=== PATIENT | male | born 1980 | race Caucasian/White ===

== ENCOUNTER → 2016-05-15 | Outpatient (CLI) | payer OTHER ==
[2016-05-17 11:08] LABS: QUANTIF TB AG-NIL 0.01 IU/ML; QUANTIFERON NIL 0.02 IU/ML
== END | disposition home or self-care (01) ==
LOC: C.LABSPEC 12:24
PROVIDERS: ATTEND Dermatology
DX: L40.0 Psoriasis vulgaris (principal)

== ENCOUNTER → 2017-03-16 | Outpatient (CLI) | payer OTHER ==
--- NOTE | 2017-03-16 13:28 | DIAGNOSTIC IMAGING REPORT ---
R KNEE 4 OR MORE HISTORY: 36 years-old Male RIGHT KNEE AND LEFT ANKLE PAIN acute right knee pain without reported trauma COMPARISON: None available TECHNIQUE: 4 views of the right knee FINDINGS: No acute fracture, dislocation or significant degenerative changes. Small joint effusion. No intra-articular loose body. No osteochondral defect. IMPRESSION: Small joint effusion without acute fracture. The above report was generated using voice recognition software. It may contain grammatical, syntax or spelling errors. Electronically signed by: Yoni Selby M.D. 03/16/2017 1:26 PM Dictated Date/Time: 03/16/2017 1:25 PM
--- NOTE | 2017-03-16 13:32 | DIAGNOSTIC IMAGING REPORT ---
L ANKLE MIN 3 VIEWS HISTORY: 36 years-old Male RIGHT KNEE AND LEFT ANKLE PAIN acute left ankle pain COMPARISON: None available TECHNIQUE: 3 views of the left ankle FINDINGS: Chronic tearing fragmentation of the medial malleolus suggests remote fracture deformity. 3 mm corticated ossification inferior to the distal fibula is also noted. No acute fracture, dislocation or osteochondral defect identified. No definite intra-articular loose body. Mild circumferential soft tissue swelling without opaque foreign body. IMPRESSION: 1. Mild soft tissue swelling without acute fracture or dislocation. 2. Remote appearing fracture deformity of the medial malleolus. 3 mm corticated bone fragment inferior to the fibula also noted suggesting accessory ossicle or remote avulsion fracture. The above report was generated using voice recognition software. It may contain grammatical, syntax or spelling errors. Electronically signed by: Yoni Selby M.D. 03/16/2017 1:30 PM Dictated Date/Time: 03/16/2017 1:29 PM
== END | disposition home or self-care (01) ==
LOC: C.RDSM 13:05
PROVIDERS: ATTEND Family Medicine
DX: M25.572 Pain in left ankle and joints of left foot (principal); M25.561 Pain in right knee; M21.962 Unspecified acquired deformity of left lower leg; M25.461 Effusion, right knee

== ENCOUNTER → 2017-03-27 | Outpatient (CLI) | payer OTHER ==
--- NOTE | 2017-03-27 13:24 | DIAGNOSTIC IMAGING REPORT ---
ORBITS FOR MRI CLINICAL HISTORY: 36 years-old Male presenting with PRE MRI. TECHNIQUE: 3 views of the orbits were obtained. COMPARISON: None. FINDINGS: No radiopaque intraorbital foreign body. Bony orbits grossly intact. Paranasal sinuses grossly clear. Visualized portion of the calvarium intact. IMPRESSION: No intraorbital metallic foreign body to preclude MRI exam. Electronically signed by: Mitchell Evans M.D. 03/27/2017 1:23 PM Dictated Date/Time: 03/27/2017 1:22 PM
--- NOTE | 2017-03-27 15:01 | DIAGNOSTIC IMAGING REPORT ---
L LOWER EXT JOINT WITHOUT CLINICAL HISTORY: 36 years-old Male presenting with LEFT ANKLE PAIN, history of remote injury 12 years ago, concern for osteochondral defect for arthritis. TECHNIQUE: Multisequence, multiplanar MR imaging of the left ankle was performed without the use of intravenous contrast. IV contrast: None. COMPARISON: Plain radiographs from 03/16/2017. FINDINGS: Localizer images: Unremarkable. No bony edema. Articular cartilage preserved. No evidence of an osteochondral lesion. Ankle mortise preserved. Fat signal intensity within the sinus Tarsi is preserved. Tarsal tunnel preserved. Evidence of an old avulsion fracture of the medial malleolus immediately anterior to the deltoid ligament fibers. Cystic change noted within the fracture fragment. There is suggestion of a fibrous coalition of the anterior process of the calcaneus and navicular noted. Achilles tendon intact. Minimal superficial edema noted at the medial band of the plantar fascia. The fascia itself maintains normal signal intensity and is intact. Anterior and posterior inferior tibiofibular ligaments intact. Posterior talofibular ligament intact. Anterior talofibular ligament with abnormal fluid signal intensity at the talar aspect and a focal ossicle within the ligament suggestive old tear. Calcaneofibular ligament intact. Deltoid ligament intact. Anterior, posterior, and peroneal ligaments intact. IMPRESSION: 1. Evidence of an old avulsion fracture of the medial malleolus. This is not appear to disrupt the deltoid ligament. Associated cystic change within the fracture fragment evidence of degenerative change. 2. Suggestion of mild superficial plantar fasciitis of the medial band. 3. Suggestion of a calcaneonavicular fibrous coalition. 4. 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 Electronically signed by: Mitchell Evans M.D. 03/27/2017 3:00 PM Dictated Date/Time: 03/27/2017 2:45 PM
--- NOTE | 2017-03-27 15:05 | DIAGNOSTIC IMAGING REPORT ---
R LOWER EXT JOINT WITHOUT CLINICAL HISTORY: RIGHT KNEE PAIN pain TECHNIQUE: Multiaxial MRI acquisition COMPARISON STUDY: None FINDINGS: Signal characteristics of the osseous structures are unremarkable throughout. There is no significant joint effusion. Study is negative for popliteal cyst. The articular services are intact throughout. Cruciate ligaments are intact. The collateral ligaments are unremarkable. The patellar retinaculum is intact bilaterally. IMPRESSION: Normal study The above report was generated using voice recognition software. It may contain grammatical, syntax or spelling errors. Electronically signed by: Az Zelaya M.D. 03/27/2017 3:04 PM Dictated Date/Time: 03/27/2017 2:45 PM
== END | disposition home or self-care (01) ==
LOC: C.MRIBC 12:40
PROVIDERS: ATTEND Family Medicine
DX: M25.561 Pain in right knee (principal); M25.572 Pain in left ankle and joints of left foot